=== PATIENT | male | born 1975 | race Caucasian/White ===

== ENCOUNTER 2024-10-31 08:01 | Emergency (ER) | payer OTHER, SELFPAY ==
--- NOTE | 2024-10-31 08:09 | ED.GENADULT ---
HPI - General Adult General Chief complaint: Upper Respiratory Infection Stated complaint: bronchitis Time Seen by Provider: 10/31/24 08:08 Source: patient Mode of arrival: ambulatory Limitations: no limitations History of Present Illness HPI narrative: 49-year-old male patient presents to the [facility] with complaints of a cough for the past 2 days, congestion, runny nose. Patient states he is coughing up some yellow phlegm at times. Patient states he is short of breath when he is in a coughing fit. Denies fevers that he is aware of but states he has been getting some body aches and chills. Patient states he recently just got back from [place] and has been doing some recent travel. Denies getting a flu shot this year. Denies testing himself for COVID. Patient did states he did take 1 Zyrtec D last night and other Zyrtec D today. Related Data Allergies Allergy/AdvReac Type Severity Reaction Status Date / Time No Known Allergies Allergy Verified 10/31/24 08:14 Review of Systems Review of Systems: CONSTITUTIONAL: Denies fever, Body aches and chills, denies sweats. EYES: Denies visual changes, redness, or discharge. ENT: positive rhinorrhea, congestion, denies sore throat, or otalgia. CARDIOVASCULAR: Denies chest pain, palpitations, or edema. RESPIRATORY: positive cough with intermittent dyspnea. GASTROINTESTINAL: Denies abdominal pain, nausea, vomiting, or diarrhea. GENITOURINARY: Denies dysuria or hematuria. SKIN: Denies rash or itching. MUSCULOSKELETAL: Denies back pain, joint pain, or myalgia. NEUROLOGIC: Denies headache, numbness, or weakness. PSYCHIATRIC: Denies anxiety or depression. [facility] Past Medical History Medical History (Updated 10/31/24 @ 08:50 by JOEL Mcarthur) Bronchitis Seasonal allergies Comments At the time of my signature I agree with nursing past medical history, surgical, social, and family history. There is no relevant family history pertinent to the presenting complaint. Exam Narrative: GENERAL: Well-appearing, well-nourished, and in no acute distress. HEAD: Normocephalic, atraumatic. EYES: PERRLA and EOMI. ENT: Nares with erythema edema noted bilaterally, no active rhinorrhea or epistaxis. Mucous membranes moist. posterior pharynx with no erythema, tonsillar enlargement, exudates or lesions present. Bilateral TMs are clear no erythema foreign bodies the canal. NECK: Supple. No lymphadenopathy CHEST: Clear to auscultation. No respiratory distress. Patient able talk in clear complete sentences. No coughing noted during exam. HEART: Regular rate and rhythm. No murmur heard. Normal peripheral pulses. ABDOMEN: Soft, nontender, nondistended, normal active bowel sounds. EXTREMITIES: Normal range of motion. No edema. SKIN: Warm, dry, no rash. NEURO: No focal deficits. Alert and oriented x3. Course Course Level of Care: Express Care Visit Reevaluation(s) Reevaluation #1: re-evaluated patient notified him that he is negative today for COVID and influenza. Discussed with him that since he has only had symptoms for 2 days this is most likely viral. I will discharge him home with some Tessalon Perles for the cough as well as add Medrol Dosepak to help with the sinus congestion and drainage. Patient may continue taking [id number] Zyrtec, Tylenol ibuprofen as needed. Discussed with patient that viruses can last up to 10 days. If patient develops fevers, chest pain or shortness of breath then I encouraged him to be re-evaluated. Patient verbalized understanding denies any other questions or concerns at this time. Date: 10/31/24 Time: 08:53 Vital Signs Vital signs: Vital Signs Temperature 36.2 C L 10/31/24 08:13 Pulse Rate 87 10/31/24 08:13 Respiratory Rate 16 10/31/24 08:13 Blood Pressure 121/80 10/31/24 08:13 Pulse Oximetry 97 10/31/24 08:13 Oxygen Delivery Room Air 10/31/24 08:13 Temperature 36.2 C L 10/31/24 08:15 Pulse Rate 87 10/31/24 08:15 Respiratory Rate 16 10/31/24 08:15 Blood Pressure 121/80 10/31/24 08:15 Pulse Oximetry 97 10/31/24 08:15 Oxygen Delivery Room Air 10/31/24 08:15 vital signs reviewed. Medical Decision Making MDM Narrative Medical decision making narrative: Plan care for patient is to test him today for COVID and flu since he has had some recent travel and is having body aches and chills. I will reassess him once this has resulted. Discussed with patient that if this does come back negative most likely will treat him with Tessalon Perles for the cough and a mild steroid to help with the congestion symptoms. Patient verbalized understanding denies any other questions or concerns at this time. Differential Diagnosis Differential Diagnosis: Differential diagnosis: Allergic rhinitis, chronic sinusitis, tonsillitis, acute sinusitis, infectious mononucleosis, seasonal influenza, pertussis, diphtheria, meningococcal disease, viral syndrome, viral bronchitis, RSV, COVID-19 Vital Signs Vital Signs: Vital Signs Temperature 36.2 C L 10/31/24 08:13 Pulse Rate 87 10/31/24 08:13 Respiratory Rate 16 10/31/24 08:13 Blood Pressure 121/80 10/31/24 08:13 Pulse Oximetry 97 10/31/24 08:13 Oxygen Delivery Room Air 10/31/24 08:13 Temperature 36.2 C L 10/31/24 08:15 Pulse Rate 87 10/31/24 08:15 Respiratory Rate 16 10/31/24 08:15 Blood Pressure 121/80 10/31/24 08:15 Pulse Oximetry 97 10/31/24 08:15 Oxygen Delivery Room Air 10/31/24 08:15 Lab Data Labs: Lab Results 10/31/24 Range/Units 08:47 POC Influenza A Ag Negative (Negative) POC Influenza B Ag Negative (Negative) POC SARS CoV-2 Ag Negative (Negative) Critical Care Time Critical Care Time Critical Care Time: No Discharge Plan Discharge Clinical Impression: Viral URI with cough Patient Disposition: Home, Self-Care Condition: Stable Instructions: Antibiotic Form, Viral Syndrome (ED) Additional Instructions: Viral illness may last between 7-12days; antibiotic is NOT recommended at this time. Recommend antihistamine such as Benadryl at night time and Claritin/Zyrtec/Anisa during the day Cough syrup may cause drowsiness; avoid driving or take it at night time. Also, recommend symptomatic treatment includes: rest, fluids, and increase humidity of the air at home. Recommend Acetaminophen or nonsteroidal anti-inflammatory agents (NSAIDs) as directed in the bottle to reduce fever and/pain/headache. Avoid smoking/second-hand smoke. Limit visits to areas with large crowds. Please schedule a follow-up visit with your personal physician for further evaluation and treatment within 3-5days. Including recheck and discussion of your blood pressure. If your symptoms persist, change or worsen significantly before you can contact your personal physician then please, without delay, go to the emergency department for further evaluation. Prescriptions: New benzonatate 200 mg capsule 200 mg PO TID PRN (Reason: cough) 10 Days Qty: 30 0RF methylprednisolone 4 mg tablets,dose pack See Rx Instructions PO .COMPLEX Qty: 21 0RF Rx Instructions: for 6 days Follow-up/Referrals: PHYSICIAN,[facility] [Primary Care Provider] - Time of Disposition: 08:51
[2024-10-31 08:13] VITALS: BP 121/80; PULSE 87; RESP 16; TEMP 36.2; O2SAT 97
[2024-10-31 08:15] VITALS: BP 121/80; PULSE 87; RESP 16; TEMP 36.2; O2SAT 97
[2024-10-31 08:49] LABS: EDCOVIDSCREEN Negative (Negative); EDINFLUASCREEN Negative (Negative); EDINFLUBSCREEN Negative (Negative)
== END 2024-10-31 08:55 | disposition home or self-care (01) ==
PROVIDERS: Emergency Provider Nurse Practitioner Family; Referring Provider Family Medicine
DX: J06.9 Acute upper respiratory infection, unspecified (principal); R05.9 Cough, unspecified; Z20.822 Contact with and (suspected) exposure to COVID-19
CPT/HCPCS: 87426; 87804; 99213; G0463